=== PATIENT | male | born 1955 | race Caucasian/White ===

== ENCOUNTER 2021-08-24 14:49 | Emergency (ER) | payer BC ==
[~2021-08-24] VITALS: Ht 177.8 cm; Wt 106.6 kg
[2021-08-24] MEDS ORDERED: ALTACE10 MG PO (15:14)
[2021-08-24] MEDS ORDERED: DESCOVY 200-251 EACH PO (15:15)
[2021-08-24] MEDS ORDERED: RESTORIL7.5 M1 PO (15:15)
[2021-08-24] MEDS ORDERED: TRIAMTERENE/HCT1 CA1 PO (15:15)
[2021-08-24] MEDS ORDERED: ZOCOR 10 MG TAB10 M1 PO (15:16)
[2021-08-24] MEDS ORDERED: METFORMIN HCL500 M3 PO (15:16)
[2021-08-24] MEDS ORDERED: MIRAPEX 0.250.25 M1 PO (15:16)
[2021-08-24] MEDS ORDERED: CARVEDILOL25 MG PO (15:16)
[2021-08-24 15:25] LABS: HEMATOCRIT 41.5 % (42.0-52.0); HEMOGLOBIN 14.2 gm/dL (14.0-18.0); MCH 34.5 pg (26.0-34.0); MCHC 34.1 g/dL (28.0-37.0); MCV 101.2 fL (80.0-100.0); MPV 7.6 fl. (7.2-11.1); RBC 4.1 mil/uL (4.50-6.00); RDW-CV 12.9 % (10.5-14.5); WBC 8.9 thou/uL (4.0-11.0)
[2021-08-24 15:33] LABS: CALCIUM 9.6 mg/dL (8.5-10.1); CREATININE 1.5 mg/dL (0.6-1.3); POTASSIUM 4.6 mmol/L (3.5-5.1)
[2021-08-24 15:38] LABS: ALBUMIN 3.8 g/dL (3.4-5.0); TOTAL BILIRUBIN 0.4 mg/dL (<0.1-1.0); TOTAL PROTEIN 7.5 g/dL (6.4-8.2)
[2021-08-24] MEDS ORDERED: XANAX 0.5 MG0.5 MG PO (15:55)
[2021-08-24 16:55] VITALS: BP 149/71
--- NOTE | 2021-08-25 10:56 | EKG ---
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
== END 2021-08-24 16:55 | disposition home or self-care (01) ==
LOC: M.ERS 14:49
PROVIDERS: Physician Assistant
DX: F41.9 Anxiety disorder, unspecified (principal); R06.00 Dyspnea, unspecified; E11.9 Type 2 diabetes mellitus without complications; Z79.899 Other long term (current) drug therapy; Z88.5 Allergy status to narcotic agent